=== PATIENT | male | born 1965 | race Caucasian/White ===

== ENCOUNTER 2025-03-16 09:17 | Outpatient (CLI) | payer OTHER, SELFPAY ==
--- NOTE | ~2025-03-16 | XR_ITS ---
Clinical Indication: Melanoma PA and lateral views of the chest: Comparison: None Findings: The lungs are clear, without evidence of focal consolidation or pleural effusion. Cardiome diastinal silhouette is within normal limits. Bones and soft tissues are unremarkable. Impression: Normal chest. Reviewed, dictated and finalized at location . Impression: Normal chest.
--- OUTSIDE RECORDS SUMMARY | 2025-03-16 09:45 | XMS_ITS | Encounter Summary ---
Author Organization [facility] Address [facility] [place] [address] Care Team Providers Care Medicaid Plan Compliance Director Name Role Phone Jesus Garcia DO Primary Care Provider [phone] Mayco Roberts MD Unavailable [phone] Merry Mahoney MD Primary Care Provider + Marc Lea DO Unavailable [phone] Marc Lea DO Primary Care Provider Nohelia Frausto APRN Primary Care Provider [phone] Tomasa Butterfield NP Primary Care Provider [phone] Encounter Details Date Type Department Care Team (Late st Contact Info) Description 10/16/2017 [facility] at [facility], [address] [address] Jorge Sherman MA Social History Tobacco Use Types Packs/Day Years Used Date Smoking Tobacco: Former Cigarettes Q uit: 1989 Smokeless Tobacco: Never Alcohol Use Standard Drinks/Week Comments Yes 0 (1 standard drink = 0.6 oz pur e alcohol) 2 beers a week Sex and Gender Information Value Date Recorded Sex Assigned at Male 11/28/2024 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 [facility] [address] [place] [address] documented as of this encounter Procedures Procedure Name Priority Date/Time Associated Diagnosis Comments CBC (OUTSIDE LAB) Routine 02/10/2018 COMPREHENSIVE METABOLIC PANEL Routine 02/10/2018 LIPID PANEL Routine 02/10/2018 HEMOGLOBIN, GLYCOSYLATED Routine 02/10/2018 THYROID STIM HORMONE TSH Routine 02/10/2018 CBC (OUTSIDE LAB) Routine 09/17/2017 COMPREHENSIVE METABOLIC PANEL Routine 09/17/2017 THYROXINE, FREE (FT4) Routine 09/17/2017 THYROID STIM HORMONE TSH Routine 09/17/2017 VITAMIN D, 25 OH Routine 09/17/2017 PROSTATE SPECIFIC ANTIGEN,TOTAL Routine 03/11/2017 LIPID PANEL Routine 03/11/2017 documented in this encounter Results * THYROID STIM HORMONE, TSH (02/10/2018) TSH 1.905 02/10/2018 us [facility] Final Result * LIPID PANEL (02/10/2018) CHOLESTEROL 275 HDL 42 TRIGLYCERIDES 311 LDL (CALCULATED) 171 02/10/2018 us [facility] Final Result * HEMOGLOBIN, GLYCOSYLATED (02/10/2018) HGB A1C 5.7 02/10/2018 us [facility] Final Result * COMPREHENSIVE METABOLIC PANEL (02/10/2018) SODIUM S/P/B 141 POTASSIUM S/P/B 5.3 CO2 27 CHLORIDE S/P/B 102 GLUCOSE 90 mg/dL CALCIUM S/P/B 9.8 BUN 16 CREATININE S/P/B 0.97 0.7 - 1.3 ALKALINE PHOSPHATASE S/P/B 76 ALT 57 AST 34 BILIRUBIN TOTAL S/P/B 0.4 ALBUMIN S/P/B 4.6 3.5 - 5.0 TOTAL PROTEIN S/P/B 7.2 02/10/2018 [facility] Final Result * CBC (OUTSIDE LAB) (02/10/2018) WBC 6.3 HGB 15.7 HCT 46 PLT 298 02/10/2018 [facility]IDE/ABSTRACTED Final Result * THYROXINE, FREE (FT4) (09/17/2017) Pathologist [facility] FREE T4 0.89 09/17/2017 us Doc [facility] Final Result * THYROID STIM HORMONE, TSH (09/17/2017) TSH 1.194 09/17/2017 us [facility] Final Result * VITAMIN D, 25 OH (09/17/2017) VITAMIN D 25 HYDROXY S/P/B 32 09/17/2017 us Doc [facility] Final Result * COMPREHENSIVE METABOLIC PANEL (09/17/2017) SODIUM S/P/B 141 POTASSIUM S/P/B 4.8 CO2 27 CHLORIDE S/P/B 105 GLUCOSE 100 mg/dL CALCIUM S/P/B 9.4 BUN 13 CREATININE S/P/B 1.0 0.7 - 1.3 EGFR AFR. AMER. >60 EGFR NON-AFR. AMER. >60 <=90 ALKALINE PHOSPHATASE S/P/B 78 ALT 64 AST 39 BILIRUBIN TOTAL S/P/B 0.4 ALBUMIN S/P/B 4.2 3.5 - 5.0 TOTAL PROTEIN S/P/B 6.9 09/17/2017 us [facility] Final Result * CBC (OUTSIDE LAB) (09/17/2017) Pathologist [facility] WBC 6.1 HGB 15.8 HCT 45.1 PLT 268 09/17/2017 us Doc [facility]IDE/ABSTRACTED Final Result * PROSTATE SPECIFIC ANTIGEN,TOTAL (03/11/2017) Pathologist [facility] PSA 0.721 03/11/2017 us [facility] Edited Resul t - Final * LIPID PANEL (03/11/2017) Pathologist [facility] CHOLESTEROL 209 HDL 41 TRIGLYCERIDES 124 LDL (CALCULATED) 143 03/11/2017 us Doc [facility] Final Result documented in this encounter Visit Diagnoses Not on filedocumented in this encounter Additional Health Concerns Infection Onset Date Last Indicated Resolved Time COVID-19 Rule Out 07/22/2020 07/22/2020 07/23/2020 3:22 PM CDT documented as of this encounter Care Teams Medicaid Plan Compliance Director Relationship Specialty Start Date End Date Jesus Garcia DO [address] [place] [address] PCP - General INTERNAL MEDICINE 09/09/17 03/28/18 Merry Mahoney MD [address] [place] [address] PCP - General FAMILY PRACTICE 03/29/18 10/11/23 Marc Lea DO [address] [place] [address] PCP - General FAMILY PRACTICE 10/12/23 02/14/24 Nohelia Frausto APRN [address] [place] [address] PCP - General NURSE PRACTITIONER 02/15/24 05/26/24 Tomasa Butterfield NP [address] [place] [address] PCP - General NURSE PRACTITIONER 05/27/24 Mayco Roberts MD [facility]. [address] [address] [place] Lodging Manager CARDIOVASCULAR DISEASE 09/09/17 Marc Lea DO [address] [place] [id number] FAMILY PRACTICE 10/09/23 documented as of this encounter
--- OUTSIDE RECORDS SUMMARY | 2025-03-16 09:45 | XMS_ITS | Clinical Summary ---
Author Organization [facility] Address [address] [place] [address] Care Team Providers Care Cork Molder Name Role Phone Mayco Roberts MD Unavailable [phone] SuereneMarc DO Unavailable [phone] Tomasa Butterfield APARTMENT COMMUNITY MANAGER Primary Care Provider [phone] Allergies Active Allergy Reactions Criticality Noted Date Comments Ibuprofen Diarrhea 09/21/2017 12/20/2021 He has intestional bleeding when taking ibuprofen. Medications Multiple Vitamin (DAILY VITAMIN) Tab Take 1 tablet by mouth 2 (two) times a day. 30 tablet 9 Active sildenafil (VIAGRA) 50 MG tabletIndications:H ypogonadism in male,Erectile dysfunction of organic origin Take 1 tablet (50 mg total) by mouth as needed for Erectile Dysfunction. TAKE ONE 30 MIN -1 HR PRIOR TO SEXUAL ACTIVITY 30 tablet 6 2 Active vitamin B-12 (CYANOCOBALAMIN) (CYANOCOBALAMIN) 1000 mcg tablet Take 1 tablet (1,000 mcg total) by mouth daily. Active aspirin 81 MG chewable tablet Chew 1 tablet (81 mg total) by mouth daily. Active Vitamin D3 (VITAMIN D) 50 mcg tablet Take 1 tablet (50 mcg total) by mouth daily. Active pantoprazole EC (PROTONIX) 40 MG tabletIndications:U lcerative colitis without complications, unspecified location (CMS/HCC HHS/HCC) Take 1 tablet (40 mg total) by mouth daily. 90 tablet 3 4 Active mesalamine EC (ASACOL HD) 800 MG tabletIndications:U lcerative colitis with complication, unspecified location ([facility]) Take 1 tablet (800 mg total) by mouth 2 (two) times daily. 180 tablet 3 4 04/06/20 25 Active escitalopram (LEXAPRO) 10 MG tabletIndications:G AD (generalized anxiety disorder) TAKE 1 TABLET (10 MG TOTAL) BY MOUTH DAILY. 90 tablet 2 4 Active gabapentin (NEURONTIN) 300 MG capsuleIndications: Polyneuropathy associated with underlying disease ([facility]) Take 1 capsule (300 mg total) by mouth 2 (two) times daily as needed. 90 capsule 2 5 Active ezetimibe (ZETIA) 10 MG tabletIndications:M ixed hyperlipidemia TAKE 1 TABLET (10 MG TOTAL) BY MOUTH NIGHTLY. 90 tablet 1 5 Active losartan (COZAAR) 100 MG tabletIndications:E ssential (primary) hypertension TAKE 1 TABLET (100 MG TOTAL) BY MOUTH DAILY. 90 tablet 5 Active amLODIPine (NORVASC) 10 MG tabletIndications:E ssential (primary) hypertension TAKE 1 TABLET (10 MG TOTAL) BY MOUTH DAILY. 90 tablet 5 Active Active Problems Problem Noted Date Diagnosed Date Polyneuropathy associated with underlying diseas e ([facility]) 10/18/2024 Melanoma of back ([facility]) 08/15/2024 Ulcerative colitis without c omplications, unspecified location ([facility]) 02/19/2024 Lumbar radiculopathy 01/08/2023 Mixed hyperlipidemia 03/31/2019 Essential (primary) hypertension 06/09/2018 Gastro-esophageal reflux disease without esophag itis 06/09/2018 Major depressive disorder, single episode, unspe cified 06/09/2018 Atrial septal defect ([facility]) 12/06/2010 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[facility]) 12/06/2010 Resolved Problems Problem Noted Date Diagnosed Date Resolved Date Bacterial overgrowth syndrome 02/19/2024 10/05/2024 Generalized abdominal pain 02/19/2024 1 12/05/2023 Screen for colon cancer 12/23/202109/10 Overview (12/23/2021): Added automatically from request for surgery [id number] Fatigue 08/08/2019 10/05/2024 Abnormal EKG 08/08/2019 10/05/2024 Chest pain, unspecified type 06/20/2019 10/05/2024 Cerebrovascular accident (CV A), unspecified mechanism ([facility]) 03/31/2019 10/05/2024 Ulcerative colitis, unspecif ied with unspecified complications ([facility]) 06/09/2018 10/05/2024 Overview (01/22/2022): Added automatically from request for surgery [id number] Encounter for other orthopedic aftercare 06/09/2018 10/05/2024 Low back pain 06/09/2018 10/05/2024 Personal history of transien t ischemic attack (TIA), and cerebral infarction without residual deficits 06/09/2018 10/05/2024 Encounter for preventive health examination 08/02/2012 07/20/2020 Sebaceous cyst 08/02/2012 10/05/2024 Overview (11/04/2019): Sebaceous cyst Pure hypercholesterolemia 12/06/2010 Unspecified disorder of circulatory system 12/06/2010 10/05/2024 Immunizations Immunization Administration Dates Next Due Influenza Adult (Generic) 09/28/2024 Shingrix 09/28/2024 Tdap (Generic) 10/18/2024 Family History Medical History Relation Comments Stroke Father Relation Status Comments Father Alive Maternal Grandfather (Age 35) Maternal Grandmother (Age 95) Mother Alive Paternal Grandfather Paternal Grandmother Sister 1 Alive Sister 2 Alive Social History Tobacco Use Types Packs/Day Years Used Date Smoking Tobacco: Former Cigarettes 1 9 1 1 - 1989 Passive Smoke Exposure: Never Smokeless Tobacco: Never Tobacco Cessation:Counseling Given: No Alcohol Use Standard Drinks/Week Comments Yes 0 (1 standard drink = 0.6 oz pur e alcohol) less than one per week [id number] Health Literacy Answer Date Recor ded How often do you need to hav e someone help you when you read instructions, pamphlets, or other written material from your doctor or pharmacy? Never 10/18/2024 [facility] Utilities Answer Date Recorded In the past 12 months has e electric, gas, oil, or water company threatened to shut off services in your home? No 10/18/2024 Humiliation, Afraid, Rape, and Kick questionnair e Answer Date Recorded Within the last year, have y ou been afraid of your partner or ex-partner? No 10/18/2024 Within the last year, have y ou been humiliated or emotionally abused in other ways by your partner or ex-partner? No Within the last year, have y ou been kicked, hit, slapped, or otherwise physically hurt by your partner or ex-partner? No 10/18/2024 Within the last year, have y ou been raped or forced to have any kind of sexual activity by your partner or ex-partner? No 10/18/2024 Social Connection and Isolat ion Panel [NHANES] Answer Date Recorded In a typical week, how many times do you talk on the phone with family, friends, or neighbors? Three times a week 10/18/2024 How often do you get togethe r with friends or relatives? Twice a week 10/18/2024 How often do you attend chur ch or buddhism services? More than 4 times per year 10/18/2024 Do you belong to any clubs o r organizations such as moravian groups, unions, fraternal or athletic groups, or school groups? Yes 10/18/2024 How often do you attend meet ings of the clubs or organizations you belong to? 1 to 4 times per year 10/18/2024 Are you , , di vorced, , never , or living with a partner? 10/18/2024 AUDIT-C Answer Date Recorded Q1: How often do you have a drink containing alc ohol? Monthly or less 10/18/2024 Q2: How many drinks containi ng alcohol do you have on a typical day when you are drinking? 1 or 2 10/18/2024 Q3: How often do you have si x or more drinks on one occasion? Never 10/18/2024 Overall Financial Resource Strain (CARDIA) Answe r Date Recorded How hard is it for you to pa y for the very basics like food, housing, medical care, and heating? Not hard at all 10/18/2024 PHQ-2 Answer Date Recorded Patient Health Questionnaire-2 Score 0 11/18/2024 [facility] Occupat ional Health - Occupational Stress Questionnaire Answer Date Recorded Do you feel stress - tense, restless, nervous, or anxious, or unable to sleep at night because your mind is troubled all the time - these days? Not at all 10/18/2024 Exercise Vital Sign Answer Date Recorde d On average, how many days pe r week do you engage in moderate to strenuous exercise (like a brisk walk)? 7 days 10/18/2024 On average, how many minutes do you engage in exercise at this level? 40 min 10/18/2024 Hunger Vital Sign Answer Date Recorded Within the past 12 months, y ou worried that your food would run out before you got the money to buy more. Never true 10/18/20 24 Within the past 12 months, t he food you bought just didn't last and you didn't have money to get more. Never true 10/18/2024 PRAPARE - Transportation Answer Date Re corded In the past 12 months, has l ack of transportation kept you from medical appointments or from getting medications? No 10/09 In the past 12 months, has l ack of transportation kept you from meetings, work, or from getting things needed for daily living? No 10/18/2024 Housing Stability Vital Sign Answer [place] e Recorded In the last 12 months, was t here a time when you were not able to pay the mortgage or rent on time? No 10/18/2024 In the past 12 months, how m any times have you moved where you were living? 0 10/18/2024 At any time in the past 12 m [facility], were you homeless or living in a half-way (including now)? 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 Sex Male 8:31 PM CDT Gender Identity Not on file Sexual Orientation Not on file Occupation Industry Job Start Date Job End Date Not on file Not on file Not on file Not on file Last Filed Vital Signs Vital Sign Reading Time Taken Comments Blood Pressure 127/76 12/08/2024 7:22 AM GUEST LAUNDRY ATTENDANT Pulse 58 12/08/2024 7:22 AM GUEST LAUNDRY ATTENDANT Temperature 36.7 C (98.1 F) 11/18/2024 8:35 AM GUEST LAUNDRY ATTENDANT Respiratory Rate 18 11/18/2024 8:35 AM GUEST LAUNDRY ATTENDANT Oxygen Saturation 98% 12/08/2024 7:22 AM GUEST LAUNDRY ATTENDANT Inhaled Oxygen Concentration - - Weight 112.5 kg (248 lb) 12/08/2024 7:22 AM GUEST LAUNDRY ATTENDANT Height 190.5 cm (6' 3 ) 12/08/2024 7:22 AM GUEST LAUNDRY ATTENDANT Body Mass Index 31 12/08/2024 7:22 AM GUEST LAUNDRY ATTENDANT Plan of Treatment Upcoming Encounters Date Type Department Care Team (Late st Contact Info) Description 04/10/2025 9:15 AM CDT Office Visit [facility] [address] [place] [address] Sari Nixon, APARTMENT COMMUNITY MANAGER-C [facility]. [facility] [address] [place] [address] Health Maintenance Due Date Last Done Comments Pneumococcal Vaccine: 50+ Years (1 of 1 - PCV) 2013 Annual Physical 10/18/2025 10/18/2024, 10/12/2023 COVID-19 Vaccine ( - 2023- season) 2025 11/14/2021, 02/14/2021, 01/24/2021 Postponed from 07/10/2024 (Patient Refused) Zoster Vaccines (2 of 2) 10/18/2025 09/28/2024 Pos tponed from 11/23/2024 (Patient Refused) Colorectal Cancer Screening Colonoscopy (10 Years) 04/01/2034 04/01/2024, 02/14/2022, 07/25/2020, Additional history exists DTaP, Tdap and Td Vaccines (2 - Td or Tdap) 10/18/2034 10/18/2024 RSV Immunization or 60+ Years (1 - 1-dose 75+ series) 2038 Hepatitis C Completed 09/17/2017 PHQ-2 (Physician Mechoopda) Completed 11/18/2024 Meningococcal B Vaccine Aged Out No l onger eligible based on patient's age to complete this topic Meningococcal Vaccine Aged Out No araceli samantha eligible based on patient's age to complete this topic RSV Immunizations Under 20 Months Aged Out No longer eligible based on patient's age to complete this topic Procedures Procedure Name Priority Date/Time Associated Diagnosis Comments COLONOSCOPY GENERIC (SCAN ORDER) Routine 01/08/2018 HEPATITIS PANEL,ACUTE Routine 09/17/2017 8:00 AM GUEST LAUNDRY ATTENDANT from Last 3 Months or Most Recently Relevant to Health Maintenance Results * COLONOSCOPY (01/08/2018) us Documents Scanned SCANNING Edited Result - Final * HEPATITIS PANEL,ACUTE (09/17/2017 8:00 AM GUEST LAUNDRY ATTENDANT) HEPATITIS B SURFACE AG NON-REACTIVE NON-REACT MELIZA 09/17/2017 9:48 AM GUEST LAUNDRY ATTENDANT [facility] HEP B CORE TOTAL AB NON-REACTIVE NON-REACT MELIZA 09/17/2017 9:48 AM GUEST LAUNDRY ATTENDANT [facility] HEP B SURFACE AB NON-REACTIVE 09/17/2017 9:48 AM GUEST LAUNDRY ATTENDANT [facility] HAV IGM NON-REACTIVE NON-REACT MELIZA 09/17/2017 9:48 AM GUEST LAUNDRY ATTENDANT [facility] HEPATITIS C AB REACTIVE 09/17/2017 11:30 AM GUEST LAUNDRY ATTENDANT [facility] Comment:CALLED [id number] TO MICK AT 'S OFFICEREAD BACK AND VERIFIED OTHER (type in comments) 09/17/2017 8:00 AM GUEST LAUNDRY ATTENDANT 09/17/2017 8:01 AM GUEST LAUNDRY ATTENDANT Comment:SERUM SPECIMEN~ACELL ULAR BLOOD (SERUM OR PLASMA) SPECIMEN us Generic Conversion Md [facility] Final R esult [facility] [address] [place] [address], [place] [phone] from Last 3 Months or Most Recently Relevant to Health Maintenance Insurance [facility] Care Teams Cork Molder Relationship Specialty Start Date End Date Tomasa Butterfield NP [address] [place] [address] PCP - General NURSE PRACTITIONER 05/27/24 Mayco Roberts MD [facility] [address] [place] [address] Kale Senior Bi Architect CARDIOVASCULAR DISEASE 09/09/17 Marc Lea DO Three [facility]. [address] [place] [address] FAMILY PRACTICE 10/09/23
--- OUTSIDE RECORDS SUMMARY | 2025-03-16 09:45 | XMS_ITS | Clinical Summary ---
Author Organization [facility] [employer] Address [address] [place] [address] Care Team Providers Care Action Installer Name Role Phone Merry Ordoñez MD Primary Care Provider [phone]- [phone] Source Comments [facility] [employer],non-owned Affiliates and Associated Physician Practices is amultiple site organization consisting of ambulatory clinics and hospital sitesin [place], [place], [place] and [place]. This disclosure is being madepursuant to the Care Everywhere program and may not contain all information available regarding this patient. Last updated 18.[facility] [employer] Allergies Active Allergy Reactions Criticality Noted Date Comments Ibuprofen Diarrhea 09/21/2017 12/20/2021 He has intestional bleeding when taking ibuprofen. Medications * Be aware that medications may not be up to date on this document. Alwaysverify current medications with the patient. fish oil/omega-3 fatty acids (Promega;Cardi- [place] 3) 1000 MG capsule Take 1 (one) capsule by mouth 3 times daily with meals Active Cholecalciferol (Vitamin D3) 1000 units CAPS Acti ve cyanocobalamin (Vitamin B-12) 1000 MCG tablet Take 1 (one) tablet by mouth once daily Active escitalopram (Lexapro) 10 MG tablet 07/30/2024 Active mesalamine HD EC (Asacol Hd) 800 MG tablet 07/30/2024 Activ e pantoprazole EC (Protonix) 40 MG tablet 06/30/2024 Active losartan (Cozaar) 100 MG tablet 07/16/2024 Active amLODIPine (Norvasc) 10 MG tablet 08/01/2024 Active ezetimibe (Zetia) 10 MG tablet 07/01/2024 Active aspirin (Aspirin) 81 MG chew tablet Take 1 (one) tablet by mouth once daily Active Azelastine HCl 137 MCG/SPRAY SOLN 11/03/2024 Active ciprofloxacin (Cipro) 500 MG tablet 02/19/2024 Active fluconazole (Diflucan) 150 MG tablet 05/22/2023 Active gabapentin (Neurontin) 300 MG capsule Take 1 (one) capsule by mouth 2 times daily as needed 11/18/2024 Active methylPREDNISol one (Medrol Dosepak) 4 MG tablet 05/22/2023 Active sildenafil (Viagra) 50 MG tablet 03/26/2023 Active Active Problems Problem Noted Date Diagnosed Date Melanoma of back 08/15/2024 Pure hypercholesterolemia 12/06/2010 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 12/06/2010 Atrial septal defect 12/06/2010 Unspecified disorder of circulatory system 12/06 Encounters Date Type Department Care Team Description 03/13/2025 2:00 PM CDT Office Visit [facility] - General Surgery [address] [place] [address] Domingo Leavitt MD Melanoma of back (HCC) (Primary Dx) 03/13/2025 Travel 03/10/2025 Orders Only [facility] - General Surgery [address] [place] [phone] Domingo Leavitt MD Melanoma of back (HCC) from Last 3 Months Social History Tobacco Use Types Packs/Day Years Used Date Smoking Tobacco: Never Smokeless Tobacco: Never Tobacco Cessation:Counseling Given: Not Answered Alcohol Use Standard Drinks/Week Comments No 0 (1 standard drink = 0.6 oz pur e alcohol) Sex and Gender Information Value Date Recorded Sex Assigned at Not on file Legal Sex Male 7:21 PM TRANSPLANT NURSE Gender Identity Not on file Sexual Orientation Not on file Last Filed Vital Signs Vital Sign Reading Time Taken Comments Blood Pressure 111/72 03/13/2025 1:50 PM CDT Pulse 70 03/13/2025 1:50 PM CDT Temperature 36.1 C (97 F) 09/12/2024 1:50 PM TRANSPLANT NURSE Respiratory Rate 15 08/30/2024 6:30 PM CDT Oxygen Saturation 99% 03/13/2025 1:50 PM CDT Inhaled Oxygen Concentration - - Weight 110.2 kg (243 lb) 03/13/2025 1:50 PM CDT Height 188 cm (6' 2 ) 03/13/2025 1:50 PM CDT Body Mass Index 31.2 03/13/2025 1:50 PM CDT Plan of Treatment Upcoming Encounters Date Type Department Care Team (Late st Contact Info) Description 09/25/2025 1:45 PM TRANSPLANT NURSE Office Visit [facility] - General Surgery [address] [place] [address] Domingo Leavitt MD [address] [facility] [address] [place] [address] Health Maintenance Due Date Last Done Comments COLOGUARD (AGES 45-75) - COL ON CA SCREENING [address] COLONOGRAPHY - COLON CA SCREENING 1963 FIT - COLON CA SCREENING 1963 FLEX SIG - COLON CA SCREENING 1963 HIV SCREENING 1978 DTAP/TDAP/TD VACCINES (1 - Tdap) 1982 PNEUMOCOCCAL VACCINE 50+ (1 of 1 - PCV) 2013 ZOSTER VACCINE (1 of 2) 2013 COVID-19 VACCINE (1 - 2023-2 5 season) 2024 DEPRESSION SCREENING 11/09/2024 SCREENING FOR DIABETES 08/23/2027 08/23/2024 LIPID TESTING 07/20/2029 07/20/2024 COLONOSCOPY - COLON CA SCREENING 04/01/2034 04/01/20 Colorectal Cancer Screening 04/01/2034 Respiratory Syncytial Virus (RSV) Vaccine Pt: or over 60 yrs (1 - 1-dose 75+ series) 2038 HEPATITIS C SCREENING Completed 09/17/2017 INFLUENZA VACCINE Completed 09/28/2024 HEPATITIS B VACCINE Aged Out No longe r eligible based on patient's age to complete this topic HIB VACCINE Aged Out No longer eligi ble based on patient's age to complete this topic HPV VACCINE Aged Out No longer eligi ble based on patient's age to complete this topic MENINGOCOCCAL (Group B) VACC INE SHARED DECISION-MAKING Aged Out No longer eligibl e based on patient's age to complete this topic MENINGOCOCCAL GROUPS A/C/Y/W VACCINE Aged Out No longer eligible b ased on patient's age to complete this topic Procedures Procedure Name Priority Date/Time Associated Diagnosis Comments COMPREHENSIVE METABOLIC PANEL Routine 08/23/2024 1:39 PM CDT Melanoma of back from Last 3 Months or Most Recently Relevant to Health Maintenance Results * COMPREHENSIVE METABOLIC PANEL (08/23/2024 1:39 PM CDT) BUN 17 7 - 26 mg/dL 08/23/2024 2:40 PM [facility] Creatinine 0.93 0.71 - 1.16 mg/dL 08/23/2024 2:40 PM [facility] Sodium 137 136 - 145 mmol/L 08/23/2024 2:40 PM [facility] Potassium 4.5 3.5 - 4.5 mmol/L 08/23/2024 2:40 PM [facility] Chloride 103 98 - 107 mmol/L 08/23/2024 2:40 PM [facility] CO2 24 22 - 29 mmol/L 08/23/2024 2:40 PM [facility] Glucose 100 70 - 115 mg/dL 08/23/2024 2:40 PM [facility] Calcium 9.7 8.4 - 10.2 mg/dL 08/23/2024 2:40 PM [facility] Protein Total 7.7 6.0 - 8.3 g/dL 08/23/2024 2:40 PM [facility] Albumin 4.3 3.4 - 5.0 g/dL 08/23/2024 2:40 PM [facility] Bilirubin Total 0.4 0.2 - 1.2 mg/dL 08/23/2024 2:40 PM [facility] Alkaline Phosphatase 75 40 - 150 U/L 08/23/2024 2:40 PM [facility] ALT 36 5 - 55 U/L 08/23/2024 2:40 PM [facility] AST 28 5 - 34 U/L 08/23/2024 2:40 PM CDT [facility] Anion Gap 10 6 - 16 08/23/2024 2:40 PM CDT [facility] BUN/Creatinine Ratio 18 7 - 23 08/23/2024 2:40 PM CDT [facility] Osmolality Calculated 286 275 - 295 mOsm/kg 08/23/2024 2:40 PM CDT [facility] Albumin/Globulin Ratio 1.3 1.1 - 2.3 08/23/2024 2:40 PM CDT [facility] eGFR by CKD-EPI >90 >=90 mL/min/1.7 3 m2 08/23/2024 2:40 PM CDT [facility] Blood BLOOD SPECIMEN / Unknown Lab Venipuncture / Unknown 08/23/2024 1:39 PM CDT 08/23/2024 2:06 PM CDT oDmingo Leavitt MD LAB - CHEMISTRY ORDERABLES Final Result Performing Organization Address City/State/[facility] Co de Phone Number [facility] [address] [place] [address], [facility] [phone] from Last 3 Months or Most Recently Relevant to Health Maintenance Insurance [facility] Care Teams Action Installer Relationship Specialty Start Date End Date Merry Ordoñez MD PCP - General 12/16/10
--- OUTSIDE RECORDS SUMMARY | 2025-03-16 09:45 | XMS_ITS | Encounter Summary ---
Author Organization [facility] Address [address] [place] [address] Care Team Providers Care Crucible Furnace Tender Name Role Phone Merry Ordoñez MD Primary Care Provider [phone]- [phone] Marc Lea DO Unavailable [phone] Tomasa Butterfield SYSTEMS PROTECTION TECHNICIAN-BUSINESS LIBRARIAN Unavailable [phone] Encounter Details Date Type Department Care Team (Late Contact Info) Description 08/10/2024 Lab Requisition [facility] - DermPath Lab [address] [place] [phone] Segundo Medley MD [address] [place] [address] Social History Tobacco Use Types Packs/Day Years Used Date Smoking Tobacco: Never Smokeless Tobacco: Never Alcohol Use Standard Drinks/Week Comments No 0 (1 standard drink = 0.6 oz pur e alcohol) Sex and Gender Information Value Date Recorded Sex Assigned at Not on file Legal Sex Male 7:21 PM FIRER KILN Gender Identity Not on file Sexual Orientation Not on file documented as of this encounter Plan of Treatment Upcoming Encounters Date Type Department Care Team (Late Contact Info) Description 09/25/2025 1:45 PM FIRER KILN Office Visit [facility] - General Surgery [address] [place] [phone] Domingo Leavitt MD [address] [facility] [address] [place] [address] documented as of this encounter Procedures Procedure Name Priority Date/Time Associated Diagnosis Comments DERMATOPATHOLOGY Routine 08/10/2024 12:0 0 AM CDT documented in this encounter Results * DERMATOPATHOLOGY (08/10/2024 12:00 AM CDT) Case Report Dermatopathology Report Case: [id number] Authorizing Provider: Segundo Medley MD Collected: 08/10/2024 12:00 AM Ordering Location: [facility] - Received: 08/10/2024 04:04 PM DermPath Lab Pathologist: Rosalina Watkins MD Specimens: A) - Skin, left angle mandible B) - Skin, left distal forearm 12:58 PM CDT DERMATOPATHOLOGY LABORATORY Final Diagnosis Specimen A. SKIN, left angle mandible: FOCAL RESIDUAL SQUAMOUS CELL CARCINOMA, WELL DIFFERENTIATED (C44.329) HEALING SKIN CHANGES (L90.5) Specimen B. SKIN, left distal forearm: HEALING SKIN CHANGES (L90.5) 12:58 PM CDT DERMATOPATHOLOGY LABORATORY Clinical History BCC bx site 12:58 PM CDT DERMATOPATHOLOGY LABORATORY Gross Description Specimen A: Received is one formalin filled container labeled with the patient's name and designated left angle mandible. The specimen consists of a curettage and desiccation biopsy measuring 2x2x1;2x2x1;3x2x1;7 x5x1 mm. Jar 0. Specimen B: Received is one formalin filled container labeled with the patient's name and designated left distal forearm. The specimen consists of a curettage and desiccation biopsy measuring 10x6x2 mm. Jar 0. 12:58 PM CDT DERMATOPATHOLOGY LABORATORY Microscopic Description Specimen A. SKIN, left angle mandible: Arising in the epidermis and extending into the dermis there are irregularly shaped aggregates of keratinocytes showing evidence of premature cornification. There is also epidermal hyperplasia beneath which there are vascular proliferation, fibroblasts, and an edematous stroma. Specimen B. SKIN, left distal forearm: There is epidermal hyperplasia beneath which there are vascular proliferation, fibroblasts, and an edematous stroma. 12:58 PM CDT DERMATOPATHOLOGY LABORATORY Disclaimer An external and internal positive and negative controls are appropriate for the histochemical, immunohistochemical and immunofluorescence stain(s) in this case (if any), except where stated explicitly. The performance characteristics of the stain(s) cited in this report were developed and its performance characteristic determined by the Dermatopathology Laboratory at [facility], directed by Dr. Otoniel Alvarez. These tests need not be, and therefore are not, approved by the [place] Food and Drug Administration. The tests are used for clinical purposes. Billing Codes Specimen Charges Stain Charges 54520 34248 1 1 12:58 PM CDT DERMATOPATHOLOGY LABORATORY Embedded Images 12:58 PM CDT DERMATOPATHOLOGY LABORATORY Pathology/Cytology TISSUE SPECIMEN FROM SKIN / Unknown 08/10/2024 08/10/2024 4:04 PM CDT Miscellaneous samples (specimen) TISSUE SPECIMEN FROM SKIN / Unknown 08/10/2024 08/10/2024 4:04 PM CDT Segundo Medley MD LAB - PATHOLOGY/CYTOLOGY ORDERAB LES Final Result DERMATOPATHOLOGY LABORATORY [facility] Department of Dermatology [facility] Medicine [address] [place] [address], [address] [phone] documented in this encounter Visit Diagnoses Not on filedocumented in this encounter Care Teams Crucible Furnace Tender Relationship Specialty Start Date End Date Merry Ordoñez MD PCP - General 12/16/10 Marc Lea DO [address] [place] [phone] PCP - Attributed-[facility] STL 11/09/23 12/09/24 Tomasa Butterfield, SYSTEMS PROTECTION TECHNICIAN-BUSINESS LIBRARIAN [address] [place], [place] [phone] PCP - Attributed-[facility] STL 12/10/24 02/24/25 documented as of this encounter
--- OUTSIDE RECORDS SUMMARY | 2025-03-16 09:45 | XMS_ITS | Encounter Summary ---
Author Organization [facility] Address [address] [place] [address] Care Team Providers Care Burial Vault Maker Name Role Phone Merry Ordoñez MD Primary Care Provider [phone]- [phone] Marc Lea DO Unavailable [phone] Tomasa Butterfield SAT ACT INSTRUCTOR-BRAIDED BAND ASSEMBLER Unavailable [phone] Encounter Details Date Type Department Care Team (Late Contact Info) Description 07/29/2024 Lab Requisition [facility] - DermPath Lab [address] [place] [phone] Segundo Medley MD [address] [place] [address] Social History Tobacco Use Types Packs/Day Years Used Date Smoking Tobacco: Never Smokeless Tobacco: Never Alcohol Use Standard Drinks/Week Comments No 0 (1 standard drink = 0.6 oz pur e alcohol) Sex and Gender Information Value Date Recorded Sex Assigned at Not on file Legal Sex Male 7:21 PM JAVA DESIGNER Gender Identity Not on file Sexual Orientation Not on file documented as of this encounter Plan of Treatment Upcoming Encounters Date Type Department Care Team (Late Contact Info) Description 09/25/2025 1:45 PM JAVA DESIGNER Office Visit [facility] - General Surgery [address] [place] [phone] Domingo Leavitt MD [address] [facility] [address] [place] [address] documented as of this encounter Procedures Procedure Name Priority Date/Time Associated Diagnosis Comments DERMATOPATHOLOGY Routine 07/27/2024 12:0 0 AM CDT documented in this encounter Results * DERMATOPATHOLOGY (07/27/2024 12:00 AM CDT) Case Report Dermatopathology Report Case: [id number] Authorizing Provider: Segundo Medley MD Collected: 07/27/2024 12:00 AM Ordering Location: [facility] - Received: 07/29/2024 10:21 AM DermPath Lab Pathologist: Rosalind Domínguez MD Specimens: A) - Skin, left angle of mandible B) - Skin, right distal forearm C) - Skin, mid post neck D) - Skin, mid central back 4:46 PM CDT DERMATOPATHOLOGY LABORATORY Amended Report At the request of the clinician's office, Site B is changed from right distal forearm to left distal forearm. 4:46 PM CDT DERMATOPATHOLOGY LABORATORY Final Diagnosis Specimen A. SKIN, left angle of mandible: BASAL CELL CARCINOMA, KERATOTIC TYPE (C44.319) Specimen B. SKIN, left distal forearm: BASAL CELL CARCINOMA, NODULAR TYPE (C44.612) Specimen C. SKIN, mid post neck: EPIDERMOID CYST WITH EVIDENCE OF RUPTURE (L72.0) Specimen D. SKIN, mid central back: MALIGNANT MELANOMA, SUPERFICIAL SPREADING TYPE BRESLOW THICKNESS 1.2 MM, JUAN ANTONIO LEVEL III PRESENT AT MARGIN (C43.59) (see microscopic description and synoptic table) Requires the attention of the treating physician. 4:46 PM CDT DERMATOPATHOLOGY LABORATORY Amendment electronically signed by Rosalind Domínguez MD on 08/10/2024 at 4:46 PM Clinical History A: BCC B: BCC C: SCC-BCC D: SM BCC 4:46 PM CDT DERMATOPATHOLOGY LABORATORY Gross Description Specimen A: Received is one formalin filled container labeled with the patient's name and designated left angle of mandible. The specimen consists of a shave biopsy measuring 10x8x2 mm. Jar 0. Specimen B: Received is one formalin filled container labeled with the patient's name and designated left distal forearm. The specimen consists of a shave biopsy measuring 5x5x1 mm. Jar 0. Specimen C: Received is one formalin filled container labeled with the patient's name and designated mid post neck. The specimen consists of a shave biopsy measuring 15x8x2 mm. Jar 0. Specimen D: Received is one formalin filled container labeled with the patient's name and designated mid central back. The specimen consists of a shave biopsy measuring 10x9x1 mm. Jar 0. 4 4:46 PM [facility] DERMATOPATHOLOGY LABORATORY Microscopic Description Specimen A. SKIN, left angle of mandible: The dermis is infiltrated by nests of basaloid cells that show peripheral palisading and are associated with fibromyxoid stroma. Both mitotic figures and necrotic cells are identified. There are also areas with squamous differentiation and keratinization within the nests. CSpecimen B. SKIN, left distal forearm: Within the dermis there are aggregates of basaloid cells with a high nuclear to cytoplasmic ratio and peripheral palisading. Specimen C. SKIN, mid post neck: Within the dermis, there is a space lined by epithelium that resembles normal epidermis and the infundibular portion of the hair follicle. Surrounding this is an infiltrate with neutrophils, histiocytes, and multinucleated giant cells. Specimen D. SKIN, mid central back: There is a proliferation melanocytes distributed in an irregular pattern singly and in nests at all levels of the epidermis. In the dermis there are irregular nests and single scattered melanocytes. MART-1/Melan-A immunohistochemical stain highlights the melanocytes as above. This lesion is present at the margin of the specimen. 4 4:46 PM [facility] DERMATOPATHOLOGY LABORATORY Disclaimer An external and internal positive and negative controls are appropriate for the histochemical, immunohistochemical and immunofluorescence stain(s) in this case (if any), except where stated explicitly. The performance characteristics of the stain(s) cited in this report were developed and its performance characteristic determined by the Dermatopathology Laboratory at [facility], directed by Dr. Otoniel Alvarez. These tests need not be, and therefore are not, approved by the [place] Food and Drug Administration. The tests are used for clinical purposes. Billing Codes Specimen Charges Stain Charges 59225 [id number] [id number] 82063 1 1 1 1 67591 1 4 4:46 PM CDT DERMATOPATHOLOGY LABORATORY Embedded Images 4 4:46 PM CDT DERMATOPATHOLOGY LABORATORY Synoptic Report INVASIVE MELANOMA OF THE SKIN: Biopsy INVASIVE MELANOMA OF THE SKIN: BIOPSY - D 8th Edition - Protocol posted: 10/21/2023 SPECIMEN Procedure: Biopsy, shave Specimen Laterality: Not specified TUMOR Tumor Site: Skin of trunk: mid central back Histologic Type: Low-cumulative sun damage (CSD) melanoma (including superficial spreading melanoma) Maximum Tumor (Breslow) Thickness (Millimeters): At least: 1.2 mm : tumor is present at the surgical margin; therefore, the final depth may exceed ther current one Ulceration: Not identified Anatomic (Juan Antonio) Level: At least level: III : tumor is present at the surgical margin; therefore, ther final depth may exceed the current one Mitotic Rate: None identified Microsatellite(s): Not identified Lymphatic and / or Vascular Invasion: Not identified Neurotropism: Not identified Tumor-Infiltrating Lymphocytes: Present, brisk Tumor Regression: Present MARGINS Margin Status for Invasive Melanoma: Invasive melanoma present at margin Margin(s) Involved by Invasive Melanoma: Deep Margin Status for Melanoma In Situ: Melanoma in situ present at margin Margin(s) Involved by Melanoma In Situ: Peripheral Margin(s) Involved by Melanoma In Situ: Deep: adnexal pTMN CLASSIFICATION (AJCC 8th Edition) Reporting of pT category is based on information available to the pathologist at the time the report is issued. As per the AJCC (Chapter 1, 8th Ed.) it is the managing physician s responsibility to establish the final pathologic stage based upon all pertinent information, including but potentially not limited to this pathology report. pT Category: pT2a Comment(s): This case was also reviewed by Dr. Marjorie Watkins, who agrees. 4:46 PM CDT DERMATOPATHOLOGY LABORATORY Pathology/Cytology TISSUE SPECIMEN FROM SKIN / Unknown 07/27/2024 07/29/2024 10:21 AM CDT Miscellaneous samples (specimen) TISSUE SPECIMEN FROM SKIN / Unknown 07/27/2024 07/29/2024 10:21 AM CDT Miscellaneous samples (specimen) TISSUE SPECIMEN FROM SKIN / Unknown 07/27/2024 07/29/2024 10:21 AM CDT Miscellaneous samples (specimen) TISSUE SPECIMEN FROM SKIN / Unknown 07/27/2024 07/29/2024 10:21 AM CDT Segundo Medley MD LAB - PATHOLOGY/CYTOLOGY ORDERAB LES Edited Result - Final DERMATOPATHOLOGY LABORATORY [facility] Department of Dermatology [facility] Medicine [address] [place] [address], [address] [phone] documented in this encounter Visit Diagnoses Not on filedocumented in this encounter Care Teams Burial Vault Maker Relationship Specialty Start Date End Date Merry Ordoñez MD PCP - General 12/16/10 Marc Lea DO [address] [place] [phone] PCP - Attributed-[facility] [facility] STL 11/09/23 12/09/24 Tomasa Butterfield, SAT ACT INSTRUCTOR-BRAIDED BAND ASSEMBLER [address] [place] [address] PCP - Attributed-[facility] STL 12/10/24 02/24/25 documented as of this encounter
--- OUTSIDE RECORDS SUMMARY | 2025-03-16 09:45 | XMS_ITS | Encounter Summary ---
Author Organization [facility] Address [address] [place] [address] Care Team Providers Care Litigation Attorney Associate Name Role Phone Merry Ordoñez MD Primary Care Provider [phone] Marc Lea DO Unavailable [phone] Tomasa Butterfield PROCESS IMPROVEMENT ANALYST-WINDSHIELD REPAIR TECHNICIAN Unavailable [phone] Encounter Details Date Type Department Care Team (Late st Contact Info) Description 12/25/2022 Lab Requisition [facility] [address] [facility] [place] [phone] Segundo Medley MD [address] [place] [address] Social History Tobacco Use Types Packs/Day Years Used Date Smoking Tobacco: Never Smokeless Tobacco: Never Alcohol Use Standard Drinks/Week Comments No 0 (1 standard drink = 0.6 oz pur e alcohol) Sex and Gender Information Value Date Recorded Sex Assigned at Not on file Legal Sex Male 7:21 PM RECIPROCATING DRILL OPERATOR Gender Identity Not on file Sexual Orientation Not on file documented as of this encounter Plan of Treatment Upcoming Encounters Date Type Department Care Team (Late Contact Info) Description 09/25/2025 1:45 PM RECIPROCATING DRILL OPERATOR Office Visit [facility] - General Surgery [address] [place] [phone] Domingo Leavitt MD [address] [facility] [address] [place] [address] (work) documented as of this encounter Procedures Procedure Name Priority Date/Time Associated Diagnosis Comments DERMATOPATHOLOGY Routine 12/24/2022 3:33 AM RECIPROCATING DRILL OPERATOR documented in this encounter Results * DERMATOPATHOLOGY (12/24/2022 3:33 AM RECIPROCATING DRILL OPERATOR) Case Report Dermatopathology Report Case: [id number] Authorizing Provider: Segundo Medley MD Collected: 12/24/2022 03:33 AM Ordering Location: [facility] DermPath Lab Received: 12/25/2022 07:01 AM Pathologist: Marjorie Watkins MD Specimens: A) - Skin, left sup shoulder B) - Skin, left medial calf 2:46 PM RECIPROCATING DRILL OPERATOR DERMATOPATHOLOGY LABORATORY Final Diagnosis Specimen A. SKIN, left sup shoulder: BASAL CELL CARCINOMA, SUPERFICIAL MULTIFOCAL (C44.619) Specimen B. SKIN, left medial calf: BASAL CELL CARCINOMA, NODULAR TYPE (C44.719) 2:46 PM RECIPROCATING DRILL OPERATOR DERMATOPATHOLOGY LABORATORY Clinical History A: R/O BCC B: prob BCC/SCC 2:46 PM RECIPROCATING DRILL OPERATOR DERMATOPATHOLOGY LABORATORY Gross Description Specimen A: Received is one formalin filled container labeled with the patient's name and designated left sup shoulder. The specimen consists of a shave biopsy measuring 10x7x1 mm. Jar 0. Specimen B: Received is one formalin filled container labeled with the patient's name and designated left medial calf. The specimen consists of a curettage and desiccation biopsy measuring 9x7x2 mm. Jar 0. 2:46 PM RECIPROCATING DRILL OPERATOR DERMATOPATHOLOGY LABORATORY Microscopic Description Specimen A. SKIN, left sup shoulder: Attached to the undersurface of the epidermis, there are small aggregates of basaloid cells with a high nuclear to cytoplasmic ratio and peripheral palisading. Specimen B. SKIN, left medial calf: Within the dermis there are aggregates of basaloid cells with a high nuclear to cytoplasmic ratio and peripheral palisading. 2:46 PM RECIPROCATING DRILL OPERATOR DERMATOPATHOLOGY LABORATORY Disclaimer An external and internal positive and negative controls are appropriate for the histochemical, immunohistochemical and immunofluorescence stain(s) in this case (if any), except where stated explicitly. The performance characteristics of the stain(s) cited in this report were developed and its performance characteristic determined by the Dermatopathology Laboratory at [facility], directed by Dr. Otoniel Alvarez. These tests need not be, and therefore are not, approved by the [place] Food and Drug Administration. The tests are used for clinical purposes. Billing Codes Specimen Charges Stain Charges 62644 33453 1 1 3 2:46 PM RECIPROCATING DRILL OPERATOR DERMATOPATHOLOGY LABORATORY Embedded Images 3 2:46 PM RECIPROCATING DRILL OPERATOR DERMATOPATHOLOGY LABORATORY Pathology/Cytology TISSUE SPECIMEN FROM SKIN / Unknown 12/24/2022 3:33 AM RECIPROCATING DRILL OPERATOR 12/25/2022 7:01 AM RECIPROCATING DRILL OPERATOR Miscellaneous samples (specimen) TISSUE SPECIMEN FROM SKIN / Unknown 12/24/2022 3:33 AM RECIPROCATING DRILL OPERATOR 12/25/2022 7:01 AM RECIPROCATING DRILL OPERATOR Segundo Medley MD LAB - PATHOLOGY/CYTOLOGY ORDERAB LES Final Result Performing Organization Address City/State/[facility] Co de Phone Number DERMATOPATHOLOGY LABORATORY [facility] - Department of Dermatology [facility] [address] [place] [address], [address] [phone] documented in this encounter Visit Diagnoses Not on filedocumented in this encounter Care Teams Litigation Attorney Associate Relationship Specialty Start Date End Date Merry Ordoñez MD PCP - General 12/16/10 Marc Lea DO [address] [address] PCP - Attributed-[facility] STL 11/09/23 12/09/24 Tomasa Butterfield, PROCESS IMPROVEMENT ANALYST-WINDSHIELD REPAIR TECHNICIAN [address] [place] [address] PCP - Attributed-[facility] STL 12/10/24 02/24/25 documented as of this encounter
--- OUTSIDE RECORDS SUMMARY | 2025-03-16 09:45 | XMS_ITS ---
Author Name Auto Generated, Auto Generated Organization [facility] ices Address [address] [place] [address] Phone [phone] Care Team Providers Care Wide Area Network Engineer Name Role Phone Artem Lal Unavailable [phone] Functional Status No Results Mental Status No Results Allergies and Intolerances Name Onset Date Reaction Severity No Known Drug Allergies (Allergy) ThuJun 09 13: 11:00 EDT 2017 Medications Medication Directions Start Date End Date potassium chloride 20 mEq/L in dextrose 5 %-0.45 % sodium chloride IV 1000 mL INTRAVENOUS SOLUTION Intravenous Continuous for 1 Day 100 mL/hr continuous ThuJun 09 14:00:00 EDT 2017Jun 10 01:00:00 EDT 2017 vancomycin 1 gram/200 mL in 0.9 % sod. chloride intravenous piggyback 200 mL IV SOLUTION, PIGGYBACK PREMIX FROZEN(ML) Intravenous 2 Times Daily for 1 Day prophylaxis ThuJun 09 14:00:00 EDT 2017Jun 09 22:14:00 EDT 2017 acetaminophen 500 mg tablet 1000 mg TABL ET Oral PRN Every 6 Hours pain/temperature ThuJun 09 14:00:00 EDT 2017Jun 10 01:00:00 EDT 2017 Benadryl 25 mg capsule 50 mg CAPSULE Ora l PRN Hour Of Sleep insomnia ThuJun 09 14:00:00 EDT 2017Jun 10 01:00:00 EDT 2017 Benadryl 25 mg capsule 50 mg CAPSULE Ora l PRN Every 6 Hours itching ThuJun 09 14:00:00 EDT 2017Jun 10 01:00:00 EDT 2017 HYDROcodone 5 mg-acetaminophen 325 mg tablet 2 tablets TABLET Oral PRN Every 4 Hours USE FOR PAIN 6-10 FOR 2 TABLETS OR USE OTHER ORDER ThuJun 09 14:00:00 EDT 2017Jun 10 01:00:00 ED2017 HYDROcodone 5 mg-acetaminophen 325 mg tablet 1 tablet TABLET Oral PRN Every 4 Hours USE FOR PAIN 1-5 FOR 1 TABLET OR USE THE OTHER ORDER ThuJun 09 14:00:00 ED2017Jun 10 01:00:00 ED2017 Pepcid 20 mg tablet 20 mg TABLET Oral 2 Times Daily for 1 Day gerd ThuJun 09 14:00:00 EDT 2017Jun 10 01:00:00 EDT 2017 cyclobenzaprine 10 mg tablet 10 mg TABLET Oral PRN Every 8 Hours spasms ThuJun 09 14:00:00 ED2017Jun 10 01:00:00 EDT 2017 ketorolac 30 mg/mL injection solution 30 mg/mL VIAL (ML) Intravenous 2 Times Daily for 1 Day pain ThuJun 09 14:00:00 ED2017Jun 09 22:48:00 ED2017 Milk of Magnesia 400 mg/5 mL oral suspension 30 mL SUSPENSION, ORAL (FINAL DOSE FORM) Oral PRN Hour Of Sleep constipation ThuJun 09 14:00:00 ED2017Jun 10 01:00:00 ED2017 ondansetron HCl 2 mg/mL intravenous solution 4 mg/2 mL VIAL (ML) Intravenous PRN Every 4 Hours nausea ThuJun 09 14:00:00 ED2017Jun 10 01:00:00 ED2017 Dulcolax (bisacodyl) 10 mg rectal suppository 10 mg SUPPOSITORY, RECTAL Rectal Every 6 Hours for 1 Day constipation ThuJun 09 14:00:00 ED2017Jun 10 01:00:00 EDT 2017 vancomycin 1 gram/200 mL in 0.9 % sod. chloride intravenous piggyback 200 mL IV SOLUTION, PIGGYBACK PREMIX FROZEN(ML) Intravenous 2 Times Daily for 1 Day prophylaxis ThuJun 09 22:00:00 ED2017Jun 10 01:00:00 EDT 2017 morphine 10 mg/mL injection solution 10 mg/mL VIAL (ML) Intramuscular PRN Every 4 Hours pain ThuJun 09 22:00:00 EDT 2017Jun 10 01:00:00 ED2017 Problems Active Concerns * Encounter for other orthopedic aftercare* Code: * Start Date: ThuJun 09 00:00:00 ED2017 * End Date: * Text: * Low back pain* Code: * Start Date: ThuJun 09 00:00:00 EDT 2017 * End Date: * Text: * Essential (primary) hypertension* Code: * Start Date: ThuJun 09 00:00:00 EDT 2017 * End Date: * Text: * Atrial septal defect* Code: * Start Date: ThuJun 09 00:00:00 EDT 2017 * End Date: * Text: * Ulcerative colitis, unspecified with unspecified complications* Code: * Start Date: ThuJun 09 00:00:00 EDT 2017 * End Date: * Text: * Gastro-esophageal reflux disease without esophagitis* Code: * Start Date: ThuJun 09 00:00:00 EDT 2017 * End Date: * Text: * Major depressive disorder, single episode, unspecified* Code: * Start Date: ThuJun 09 00:00:00 EDT 2017 * End Date: * Text: * Personal history of transient ischemic attack (TIA), and cerebral infarction without residual deficits* Code: * Start Date: ThuJun 09 00:00:00 EDT 2017 * End Date: * Text: Reason for Referral Past Medical History
--- OUTSIDE RECORDS SUMMARY | 2025-03-16 09:45 | XMS_ITS | Encounter Summary ---
Author Organization [facility] Address [address] [place] [address] Care Team Providers Care Heater Planer Operator Name Role Phone Mayco Roberts MD Unavailable [phone] Marc Lea DO Unavailable [phone] Tomasa Butterfield BRASS FINISHER Primary Care Provider [phone] Encounter Details Date Type Department Care Team (Late st Contact Info) Description 07/27/2024 [employer] Message [facility]-[address] [address] Mayco Roberts MD [address] [address] Elevated Cholesterol and you asked if I would not be opposed to starting Repatha. Social History Tobacco Use Types Packs/Day Years Used Date Smoking Tobacco: Former Cigarettes 1 9 1 981 - 1989 Smokeless Tobacco: Never Alcohol Use Standard Drinks/Week Comments Yes 0 (1 standard drink = 0.6 oz pur e alcohol) less than one per week PHQ-2 Answer Date Recorded Patient Health Questionnaire-2 Score 0 02/19/2024 Sex and Gender Information Value Date Recorded Sex Assigned at Male 11/28/2024 6:33 AM MELTER OPERATOR Legal Sex Male 8:31 PM CDT Gender Identity Not on file Sexual Orientation Not on file Occupation Industry Job Start Date Job End Date Not on file Not on file Not on file Not on file documented as of this encounter Plan of Treatment Upcoming Encounters Date Type Department Care Team (Late st Contact Info) Description 04/10/2025 9:15 AM CDT [facility] [address] [place] [address] Sari Nixon, BRASS FINISHER-C [facility]. [address] [place], [place] [id number] documented as of this encounter Visit Diagnoses Not on filedocumented in this encounter Additional Health Concerns Assessment Noted Time PHQ-9 Depression Total Score: 0 01/23/20 22 8:26 AM CDT documented as of this encounter Care Teams Heater Planer Operator Relationship Specialty Start Date End Date Tomasa Butterfield NP [address] [place], [place] [id number] PCP - General NURSE PRACTITIONER 05/27/24 Mayco Roberts MD [facility]. [address] [place], [place] [address] [place] Manager Van CARDIOVASCULAR DISEASE 09/09/17 Marc Lea DO [facility]. [address] [place], [place] [address] FAMILY PRACTICE 10/09/23 documented as of this encounter
--- OUTSIDE RECORDS SUMMARY | 2025-03-16 09:45 | XMS_ITS | Encounter Summary ---
Author Organization [facility] Address [address] [facility] [place] [address] Care Team Providers Care Home Health Care Social Worker Name Role Phone Merry Ordoñez MD Primary Care Provider [phone] Marc Lea DO Unavailable [phone] Tomasa Butterfield CHANGE PERSON-FIRE BATTALION CHIEF Unavailable [phone] Encounter Details Date Type Department Care Team (Late Contact Info) Description 06/09/[address] [facility] - DermPath Lab [address] [place] [address] Segundo Medley MD [address] [place] [address] Social History Tobacco Use Types Packs/Day Years Used Date Smoking Tobacco: Never Smokeless Tobacco: Never Alcohol Use Standard Drinks/Week Comments No 0 (1 standard drink = 0.6 oz pur e alcohol) Sex and Gender Information Value Date Recorded Sex Assigned at Not on file Legal Sex Male 7:21 PM INVOICE CLERK Gender Identity Not on file Sexual Orientation Not on file documented as of this encounter Plan of Treatment Upcoming Encounters Date Type Department Care Team (Late Contact Info) Description 09/25/2025 1:45 PM INVOICE CLERK Office Visit [facility] - General Surgery [address] [place] [address] Domingo Leavitt MD [address] [facility] [address] [place] [address] documented as of this encounter Procedures Procedure Name Priority Date/Time Associated Diagnosis Comments DERMATOPATHOLOGY Routine 06/09/2023 12:0 0 AM CDT documented in this encounter Results * DERMATOPATHOLOGY (06/09/2023 12:00 AM CDT) Case Report Dermatopathology Report Case: [id number] Authorizing Provider: Segundo Medley MD Collected: 06/09/2023 12:00 AM Ordering Location: [facility] Lab Received: 06/09/2023 03:54 PM Pathologist: Mateo Alvarez MD Specimen: Skin, mid upper forehead 4:52 PM CDT DERMATOPATHOLOGY LABORATORY Final Diagnosis Specimen A. SKIN, mid upper forehead: BENIGN VERRUCOUS KERATOSIS, INFLAMED (L82.1) EPIDERMAL NECROSIS SUGGESTIVE OF EXCORIATION (L98.499) 4:52 PM CDT DERMATOPATHOLOGY LABORATORY Clinical History Papule r/o BCC/SCC 4:52 PM CDT DERMATOPATHOLOGY LABORATORY Gross Description Specimen A: Received is one formalin filled container labeled with the patient's name and designated mid upper forehead. The specimen consists of a shave biopsy measuring 8x7x1 mm. Jar 0. 4:52 PM CDT DERMATOPATHOLOGY LABORATORY Microscopic Description Specimen A. SKIN, mid upper forehead: Sections show hyperkeratosis, papillomatosis, hypergranulosis, and acanthosis. Inflammatory cells are present within the dermis. These histological findings can be seen in a verruca vulgaris or a seborrheic keratosis. The epidermis is focally necrotic and covered with a scale-crust. There is fibrin at the base. 4:52 PM CDT DERMATOPATHOLOGY LABORATORY Disclaimer An external and internal positive and negative controls are appropriate for the histochemical, immunohistochemical and immunofluorescence stain(s) in this case (if any), except where stated explicitly. The performance characteristics of the stain(s) cited in this report were developed and its performance characteristic determined by the Dermatopathology Laboratory at [facility], directed by Dr. Otoniel Alvarez. These tests need not be, and therefore are not, approved by the [place] Food and Drug Administration. The tests are used for clinical purposes. Billing Codes Specimen Charges Stain Charges 93338 1 3 4:52 PM CDT DERMATOPATHOLOGY LABORATORY Embedded Images 3 4:52 PM CDT DERMATOPATHOLOGY LABORATORY Pathology/Cytolog y TISSUE SPECIMEN FROM SKIN / Unknown 06/09/2023 06/09/2023 3:54 PM CDT us Segundo Medley MD LAB - PATHOLOGY/CYTOLOGY ORDERAB LES Final Result DERMATOPATHOLOGY LABORATORY [facility] - Department of Dermatology [address], [address] [phone] documented in this encounter Visit Diagnoses Not on filedocumented in this encounter Care Teams Home Health Care Social Worker Relationship Specialty Start Date End Date Merry Ordoñez MD PCP - General 12/16/10 Marc Lea DO [address] [address] PCP - Attributed-[facility] EHP STL 11/09/23 12/09/24 Tomasa Butterfield, CHANGE PERSON-FIRE BATTALION CHIEF [address] [place] [address] PCP - Attributed-[facility] EHP STL 12/10/24 02/24/25 documented as of this encounter
--- OUTSIDE RECORDS SUMMARY | 2025-03-16 09:45 | XMS_ITS | Encounter Summary ---
Author Organization [facility] Address [facility] [place] [address] Care Team Providers Care Pantograph Setter Name Role Phone Mayco Roberts MD Unavailable [phone] Merry Mahoney MD Primary Care Provider + Marc Lea DO Unavailable [phone] Marc Lea DO Primary Care Provider Nohelia Frausto CUSTOMS CONSULTANT Primary Care Provider [phone] Tomasa Butterfield MANAGER PERSONNEL SELECTION Primary Care Provider [phone] Encounter Details Date Type Department Care Team (Late st Contact Info) Description 07/17/2020 Prep for Procedure [facility] Day [facility] [address] [place], [place] [phone] Jacky Maloney MD [address] [phone] Social History Tobacco Use Types Packs/Day Years Used Date Smoking Tobacco: Former Cigarettes Q uit: 1989 Smokeless Tobacco: Never Alcohol Use Standard Drinks/Week Comments Yes 0 (1 standard drink = 0.6 oz pur e alcohol) 2 beers a week PHQ-2 Answer Date Recorded PHQ-2 Score - If the patient scores above 3, please move on to questions 3-9 0 07/10/2020 Sex and Gender Information Value Date Recorded Sex Assigned at Male 11/28/2024 6:33 AM MANAGER UNIVERSITY Legal Sex Male 8:31 PM CDT Gender Identity Not on file Sexual Orientation Not on file Occupation Industry Job Start Date Job End Date Not on file Not on file Not on file Not on file COVID-19 Exposure Response Date Recorded In the last month, have you been in contact with someone who was confirmed or suspected to have Coronavirus / COVID-19? No / Unsure 07/13/2020 2:47 PM CDT documented as of this encounter Plan of Treatment Upcoming Encounters Date Type Department Care Team (Late st Contact Info) Description 04/10/2025 9:15 AM CDT Office Visit [place] [facility] [address] [place] [address] Sari Nixon NP-C [place] [address] [place] [address] documented as of this encounter Results * PRE-SURGICAL/PRE-PROCEDURE CORONAVIRUS (COVID 19) (07/22/2020 9:31 AM CDT) CORONAVIRUS SARS COV 2 PCR (RESP) NOT DETECTED NOT DETECTED 07/23/2020 3:21 PM CDT [facility] Comment: A Not Detected (negative) test result for this test means that SARS- CoV-2 RNA was not present in the specimen above the limit of detection. A negative result does not rule out the possibility of COVID-19 and should not be used as the sole basis for treatment or patient management decisions. If COVID-19 is still suspected, based on exposure history together with other clinical findings, re-testing should be considered in consultation with public health authorities. Laboratory test results should always be considered in the context of clinical observations and epidemiological data in making a final diagnosis and patient management decisions. Please review the Fact Sheets and FDA authorized labeling available for health care providers and patients using the following websites: https://www.[employer].com/home/Covid-19/HCP/Quest[employer]/fact- sheet.html https://www.[employer].Lionexpo/home/Covid-19/Patients/ Quest[employer]D/fact-sheet.html This test has been authorized by the FDA under an Emergency Use Authorization (EUA) for use by authorized laboratories. Due to the current public health emergency, [facility] is receiving a high volume of samples from a wide variety of swabs and media for COVID-19 testing. In order to serve patients during this public health crisis, samples from appropriate clinical sources are being tested. Negative test results derived from specimens received in non-commercially manufactured viral collection and transport media, or in media and sample collection kits not yet authorized by FDA for COVID-19 testing should be cautiously evaluated and the patient potentially subjected to extra precautions such as additional clinical monitoring, including collection of an additional specimen. Methodology: Nucleic Acid Amplification Test (NAAT) includes PCR or TMA Additional information about COVID-19 can be found at the [facility] website: www.[employer].Lionexpo/Covid19. Test performed at [facility] [place] [address] [place] [address] Director: DIETER MCDOWELL DO,MPH FIRST TEST UNKNOWN 07/22/2020 9:35 AM CDT [facility] EMPLOYED IN HEALTHCARE UNKNOWN 07/22/2020 9:35 AM CDT [facility] SYMPTOMATIC DEFINED BY CDC NO 07/22/2020 9:35 AM CDT [facility] HOSPITALIZATION STATUS NO 07/22/2020 9:35 AM CDT [facility] PATIENT IN ICU NO 07/22/2020 9:35 AM CDT [facility] RESIDENT OF [facility] NO 07/22/2020 9:35 AM CDT [facility] NO 07/22/2020 9:35 AM CDT [facility] PATIENT'S RACE UNKNOWN 07/22/2020 9:35 AM CDT [facility] ETHNICITY UNKNOWN 07/22/2020 9:35 AM CDT [facility] SOURCE (QST) NASOPHARYNGEAL SWAB 07/22/2020 9:24 AM CDT [facility] NASOPHARYNGEAL SWAB / Unknown 07/22/2020 9:31 AM CDT us Jacky Maloney MD MICROBIOLOGY - GENERAL ORDERABLE S Final Result [facility] [address] [place] [address], [facility] [address] [place] [address], documented in this encounter Visit Diagnoses Diagnosis Preop testing- Primary Preoperative examination, unspecified documented in this encounter Additional Health Concerns Infection Onset Date Last Indicated Resolved Time COVID-19 Rule Out 07/22/2020 07/22/2020 07/23/2020 3:22 PM CDT documented as of this encounter Care Teams Pantograph Setter Relationship Specialty Start Date End Date Merry Mahoney MD [address] [place] [address] PCP - General FAMILY PRACTICE 03/29/18 10/11/23 Marc Lea DO [address] [place] [address] PCP - General FAMILY PRACTICE 10/12/23 02/14/24 Nohelia Frausto APRN [address] [place] [address] PCP - General NURSE PRACTITIONER 02/15/24 05/26/24 Tomasa Butterfield, MANAGER PERSONNEL SELECTION [address] [place] [address] PCP - General NURSE PRACTITIONER 05/27/24 Mayco Roberts MD [facility]. [address] [address] [place] Cdl Service Technician CARDIOVASCULAR DISEASE 09/09/17 Marc Lea DO [facility] [place] [place] [address] FAMILY PRACTICE 10/09/23 documented as of this encounter
--- OUTSIDE RECORDS SUMMARY | 2025-03-16 09:45 | XMS_ITS | Encounter Summary ---
Author Organization [facility] Address [address] [place] [address] Care Team Providers Care Delivery Rep Name Role Phone Merry Ordoñez MD Primary Care Provider [phone] Marc Lea DO Unavailable [phone] Tomasa Butterfield OPERATOR ELECTRONIC WARFARE-JUKE BOX MECHANIC Unavailable [phone] Encounter Details Date Type Department Care Team (Late st Contact Info) Description 01/09/2023 Lab Requisition [facility] [address] [place] [id number] Segundo Medley MD [address] [place] [address] Social History Tobacco Use Types Packs/Day Years Used Date Smoking Tobacco: Never Smokeless Tobacco: Never Alcohol Use Standard Drinks/Week Comments No 0 (1 standard drink = 0.6 oz pur e alcohol) Sex and Gender Information Value Date Recorded Sex Assigned at Not on file Legal Sex Male 7:21 PM DELINQUENT TAX COLLECTOR Gender Identity Not on file Sexual Orientation Not on file documented as of this encounter Plan of Treatment Upcoming Encounters Date Type Department Care Team (Late Contact Info) Description 09/25/2025 1:45 PM DELINQUENT TAX COLLECTOR Office Visit [facility] - General Surgery [address] [place] [phone] Domingo Leavitt MD [address] [facility] [address] [place] [address] (work) documented as of this encounter Procedures Procedure Name Priority Date/Time Associated Diagnosis Comments DERMATOPATHOLOGY Routine 01/08/2023 12:0 0 AM DELINQUENT TAX COLLECTOR documented in this encounter Results * DERMATOPATHOLOGY (01/08/2023 12:00 AM DELINQUENT TAX COLLECTOR) Case Report Dermatopathology Report Case: [id number] Authorizing Provider: Segundo Medley MD Collected: 01/08/2023 12:00 AM Ordering Location: [facility] Received: 01/09/2023 08:00 AM Pathologist: Indy Segovia MD Specimen: Skin, left sup shoulder 1:42 PM DELINQUENT TAX COLLECTOR DERMATOPATHOLOGY LABORATORY Final Diagnosis Specimen A. SKIN, left sup shoulder: DERMAL SCAR, PRESENT AT MARGIN RESIDUAL BASAL CELL CARCINOMA NOT IDENTIFIED (L90.5) 1:42 PM DELINQUENT TAX COLLECTOR DERMATOPATHOLOGY LABORATORY Clinical History BCC Bx SAC Check margins 1:42 PM DELINQUENT TAX COLLECTOR DERMATOPATHOLOGY LABORATORY Gross Description Specimen A: Received is one formalin filled container labeled with the patient's name and designated left sup shoulder. The specimen consists of two curettaged and desiccationed biopsies measuring 10x9x1 mm and 3x2x1 mm. Jar 0. 1:42 PM DELINQUENT TAX COLLECTOR DERMATOPATHOLOGY LABORATORY Microscopic Description Specimen A. SKIN, left sup shoulder: There are fibroblasts and collagen bundles oriented parallel to the skin surface. There are elongated blood vessels, some of which are oriented perpendicular to the skin surface. No basal cell carcinoma is identified. Scar is present at the margin of the specimen. 1:42 PM DELINQUENT TAX COLLECTOR DERMATOPATHOLOGY LABORATORY Disclaimer An external and internal positive and negative controls are appropriate for the histochemical, immunohistochemical and immunofluorescence stain(s) in this case (if any), except where stated explicitly. The performance characteristics of the stain(s) cited in this report were developed and its performance characteristic determined by the Dermatopathology Laboratory at [facility], directed by Dr. Otoniel Alvarez. These tests need not be, and therefore are not, approved by the [place] Food and Drug Administration. The tests are used for clinical purposes. Billing Codes Specimen Charges Stain Charges 78105 1 3 1:42 PM DELINQUENT TAX COLLECTOR DERMATOPATHOLOGY LABORATORY Embedded Images 3 1:42 PM DELINQUENT TAX COLLECTOR DERMATOPATHOLOGY LABORATORY Pathology/Cytolog y TISSUE SPECIMEN FROM SKIN / Unknown 01/08/2023 01/09/2023 8:00 AM DELINQUENT TAX COLLECTOR Segundo Medley MD LAB - PATHOLOGY/CYTOLOGY ORDERAB LES Final Result DERMATOPATHOLOGY LABORATORY [facility] - Department of Dermatology [facility] Medicine [address] [place] [address], [address] [phone] documented in this encounter Visit Diagnoses Not on filedocumented in this encounter Care Teams Delivery Rep Relationship Specialty Start Date End Date Merry Ordoñez MD PCP - General 12/16/10 Marc Lea DO [address] [place] [phone] PCP - Attributed-[facility] 11/09/23 12/09/24 Tomasa Butterfield APRN-JUKE BOX MECHANIC [address] [place] [address] PCP - Attributed-[facility] 12/10/24 02/24/25 documented as of this encounter
--- OUTSIDE RECORDS SUMMARY | 2025-03-16 09:45 | XMS_ITS | Encounter Summary ---
Author Organization [facility] Address [facility] [place] [address] Care Team Providers Care Plywood Matcher Name Role Phone Mayco Roberts MD Unavailable Marc Lea DO Unavailable [phone] Tomasa Butterfield STATISTICAL PROGRAMMER ANALYST Primary Care Provider [phone] Encounter Details Date Type Department Care Team (Late st Contact Info) Description 11/29/2024 Arithmatica Message [address] [address] [facility] Social History Tobacco Use Types Packs/Day Years Used Date Smoking Tobacco: Former Cigarettes 1 9 - 1989 Passive Smoke Exposure: Never Smokeless Tobacco: Never Alcohol Use Standard Drinks/Week Comments Yes 0 (1 standard drink = 0.6 oz pur e alcohol) less than one per week B1300 Health Literacy Answer Date Recor ded How often do you need to hav e someone help you when you read instructions, pamphlets, or other written material from your doctor or pharmacy? Never 10/18/2024 [facility] Utilities Answer Date Recorded In the past [...] 10/18/2024 How often do you attend chur or orthodox services? More than 4 times per year 10/18/2024 Do you belong to any clubs o r organizations such as yazidi groups, unions, fraternal or athletic groups, or [...] Recorded Patient Health Questionnaire-2 Score 0 11/18/2024 [facility] [place] of Occupat ional Health - Occupational Stress [...] any time in the past 12 m [facility], were you homeless or living in a assisted (including now)? No 10/18/2024 Sex and Gender Information Value Date Recorded Sex Assigned at Male 11/28/2024 6:33 AM WINDING OPERATOR Legal Sex Male 8:31 PM CDT Gender Identity Not on file Sexual Orientation Not on file Occupation Industry Job Start Date Job End Date Not on file Not on file Not on file Not on file documented as of this encounter Plan of Treatment Upcoming Encounters Date Type Department Care Team (Late st Contact Info) Description 04/10/2025 9:15 AM CDT Office Visit [facility] [address] [place] [address] Sari Nixon, STATISTICAL PROGRAMMER ANALYST-C [facility]. [facility] [address] [place], [place] [id number] documented as of this encounter Visit Diagnoses Not on filedocumented in this encounter Additional Health Concerns Assessment Noted Time PHQ-9 Depression Total Score: 0 01/23/20 22 8:26 AM CDT documented as of this encounter Care Teams Plywood Matcher Relationship Specialty Start Date End Date Tomasa Butterfield, [place] [address] [place] [address] PCP - General NURSE PRACTITIONER 05/27/24 Mayco Roberts MD [facility]. [address] [address] [place] Digital Photographer CARDIOVASCULAR DISEASE 09/09/17 Marc Lea DO [facility]. [address] [address] FAMILY PRACTICE 10/09/23 documented as of this encounter
== END 2025-03-16 09:18 | disposition home or self-care (01) ==
LOC: ANHLAB 09:25
PROVIDERS: Visit Provider Surgery
DX: C43.59 Malignant melanoma of other part of trunk (principal)
CPT/HCPCS: 71046